=== PATIENT | male | born 1990 | race Caucasian/White ===

== ENCOUNTER 2016-11-12 08:32 | Emergency (ER) ==
[~2016-11-12] VITALS: Ht 182.9 cm; Wt 76.8 kg
[2016-11-12 08:36] VITALS: BP 143/87; PULSE 76; TEMP 36.8; O2SAT 99; Ht 182.9 cm; Wt 76.8 kg
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
== END 2016-11-12 09:10 | disposition home or self-care (01) ==
LOC: C.EDB 08:35 → C.EDA 09:10
DX: M25.511 Pain in right shoulder (principal)